=== PATIENT | female | born 1995 | race African-American/Black ===

== ENCOUNTER 2022-12-25 09:43 | Emergency (ER) | payer MEDICAID, OTHER ==
[~2022-12-25] VITALS: Ht 170.2 cm; Wt 73.5 kg
[2022-12-25 10:01] VITALS: BP 111/77; PULSE 84; RESP 16; TEMP 98; O2SAT 97
[2022-12-25 11:43] LABS: CLARITY URINE CLOUDY (CLEAR); COLOR URINE DARK YELLOW (YELLOW); GLUCOSE URINE NEGATIVE (NEGATIVE); KETONES URINE NEGATIVE (NEGATIVE); LEUKOCYTE ESTERASE URINE NEGATIVE (NEGATIVE); NITRITE URINE NEGATIVE (NEGATIVE); OCCULT BLOOD URINE 3+ (NEGATIVE); PH URINE 5.5 (4.5-8.0); PROTEIN URINE 1+ (NEGATIVE); SPECIFIC GRAVITY URINE 1.032 (1.005-1.030)
[2022-12-25 11:46] LABS: RBC URINE TNTC /hpf (0-2); SQUAMOUS EPITHELIAL CELL URINE 2+ /lpf (RARE/1+); YEAST URINE NONE SEEN
[2022-12-25 12:03] LABS: WBC URINE 0-2 /hpf (0-2)
[2022-12-25 12:04] LABS: BACTERIA URINE 1+; MUCUS URINE 1+ /lpf (< = 2+)
== END 2022-12-25 12:47 | disposition home or self-care (01) ==
LOC: ER 09:57
DX: M79.89 Other specified soft tissue disorders (principal); Z90.49 Acquired absence of other specified parts of digestive tract
CPT/HCPCS: 81003; 81025; 93970; 99284